=== PATIENT | female | born 1975 | race African-American/Black ===

== ENCOUNTER 2025-02-20 13:12 | Inpatient (IN) | payer BC, OTHER ==
[2025-02-20 14:30] LABS: ABSOLUTE IMMATURE GRANULOCYTES 0.01 x10^3/uL (0.0-0.031); BASOPHILS # 0.03 x10^3/uL (0.01-0.08); EOSINOPHIL % 1.7 % (0.7-5.8); EOSINOPHILS # 0.09 x10^3/uL (0.04-0.36); HEMATOCRIT 42.7 % (34.1-44.9); HEMOGLOBIN 13.7 g/dL (11.2-15.7); MCHC 32.1 g/dl (32.2-35.5); MEAN CELL VOLUME 90.1 fl (79.4-94.8); MEAN PLT VOLUME 11.3 fl (9.4-12.3); MONOCYTE # 0.44 x10^3/uL (0.24-0.86); MONOCYTE % 8.2 % (4.7-12.5); PLATELET COUNT 188 x10^3/uL (182-369); RDW 13.5 % (12.2-17.1)
[2025-02-20 14:38] LABS: INR 1.06 (0.83-1.09); PROTHROMBIN TIME (PATIENT) 11.6 SEC (9.7-13.0)
[2025-02-20 14:40] LABS: ACTIVATED PTT 28.2 SECONDS (25.2-36.5)
[2025-02-20 14:56] LABS: CHLORIDE 108 mmol/L (98-107); POTASSIUM 3.3 mmol/L (3.5-5.1); SODIUM 145 mmol/L (136-145)
[2025-02-20 14:58] LABS: CALCIUM 9.4 mg/dL (8.5-10.1)
[2025-02-20 14:59] LABS: ALBUMIN 3.5 g/dl (3.4-5.0); ANION GAP 7 mmol/L (4-13); BLOOD UREA NITROGEN 13.8 mg/dL (7-18); CO2 30 mmol/L (21-32); GLUCOSE,RANDOM 99 mg/dL (74-106)
[2025-02-20 15:02] LABS: SGOT/AST 13 U/L (15-37); SGPT/ALT 16 U/L (13-61)
[2025-02-20 15:03] LABS: BILIRUBIN,TOTAL 0.4 mg/dL (0.2-1); LDL CHOLESTEROL (ONLY SJRH) 89 mg/dL (5-100); TOT PROT 7.4 g/dl (6.4-8.2)
[2025-02-20 15:04] LABS: ALK PHOS 159 U/L (45-117); HDL CHOLESTEROL 63 mg/dL (40-60)
[2025-02-20 15:47] LABS: CHOLESTEROL 168 mg/dL (50-200)
[2025-02-20] MEDS ORDERED: LABETALOL HCL 20 MG/4 ML VIAL ONE ×2 (15:53→20:37)
[2025-02-20] MEDS: LABETALOL HCL 20 MG/4 ML VIAL IVPUSH ONE ×2 (15:58→20:46)
[2025-02-20] MEDS ORDERED: POTASSIUM CHLORIDE ORAL LIQUID 20 MEQ/15 ML ONE (20:37)
[2025-02-20] MEDS: POTASSIUM CHLORIDE ORAL LIQUID 20 MEQ/15 ML PO ONE (20:46)
[2025-02-20] MEDS: NICARDIPINE 25 MG in DEXTROSE 5%-WATER - 240 ML IVPB SCH (21:19)
[2025-02-21 00:48] LABS: EPI CELLS >36 /uL (0-25.1); HYALINE CASTS 0 /uL (0-3.1); PH,URINE 7.5 (5.0-8.0); URINE APPEARANCE CLEAR; URINE BACTERIA 1530 /uL (0-1359); URINE BILIRUBIN NEGATIVE (NEGATIVE); URINE COLOR YELLOW; URINE GLUCOSE (UA) NEGATIVE (NEGATIVE); URINE KETONE NEGATIVE (NEGATIVE); URINE LEUK ESTERASE TRACE (NEGATIVE); URINE NITRITE NEGATIVE (NEGATIVE); URINE PROTEIN 1+ (NEGATIVE); URINE RBC 10 /uL (0-23.9); URINE WBC 31 /uL (0-25.8)
[2025-02-21 06:30] LABS: POTASSIUM 3.3 mmol/L (3.5-5.1)
[2025-02-21 06:37] LABS: ALBUMIN 3.4 g/dl (3.4-5.0)
[2025-02-21 06:38] LABS: BLOOD UREA NITROGEN 12.3 mg/dL (7-18)
[2025-02-21 06:39] LABS: BILIRUBIN,TOTAL 0.5 mg/dL (0.2-1); CALCIUM 9.4 mg/dL (8.5-10.1)
[2025-02-21 06:40] LABS: MAGNESIUM 2.2 mg/dL (1.8-2.4)
[2025-02-21 06:41] LABS: CREATININE 0.9 mg/dL (0.55-1.3)
[2025-02-21 06:42] LABS: PHOSPHOROUS 3.5 mg/dL (2.5-4.9)
[2025-02-21 06:48] LABS: ABSOLUTE IMMATURE GRANULOCYTES 0.02 x10^3/uL (0.0-0.031); BASOPHILS # 0.02 x10^3/uL (0.01-0.08); EOSINOPHIL % 0.8 % (0.7-5.8); EOSINOPHILS # 0.05 x10^3/uL (0.04-0.36); HEMATOCRIT 41.2 % (34.1-44.9); HEMOGLOBIN 13.4 g/dL (11.2-15.7); MCHC 32.5 g/dl (32.2-35.5); MEAN CELL VOLUME 89.8 fl (79.4-94.8); MEAN PLT VOLUME 11.9 fl (9.4-12.3); MONOCYTE # 0.34 x10^3/uL (0.24-0.86); MONOCYTE % 5.5 % (4.7-12.5); PLATELET COUNT 194 x10^3/uL (182-369); RDW 13.6 % (12.2-17.1)
[2025-02-21] MEDS: NICARDIPINE 25 MG in DEXTROSE 5%-WATER - 240 ML IVPB SCH (07:15)
[2025-02-21 08:42] LABS: N-TERMINAL BNP 2503.3 pg/ml (5-125)
[2025-02-21] MEDS: ENOXAPARIN NA (PORCINE) 40 MG/0.4 ML DISP.SYRIN SQ SCH (09:18)
[2025-02-21] MEDS: POTASSIUM CHLORIDE TABS 20 MEQ TABLET.ER (FP) PO ONE (09:18)
[2025-02-21] MEDS: ASPIRIN 81 MG CHEWABLE TABLETS PO SCH (09:18)
[2025-02-21] MEDS: LOSARTAN POTASSIUM 50 MG TABLET PO SCH (11:14)
[2025-02-21] MEDS: NIFEdipine E.R. 30 MG TABLET PO SCH (11:14)
[2025-02-21] MEDS: NIFEdipine E.R. 30 MG TABLET PO ONE (15:05)
[2025-02-21] MEDS ORDERED: hydrALAZINE HCL 20 MG/ML VIAL IVPUSH PRN ×3 (15:12→15:39)
[2025-02-21] MEDS: LOSARTAN POTASSIUM 50 MG TABLET PO ONE (15:55)
[2025-02-21] MEDS: hydrALAZINE HCL 20 MG/ML VIAL IVPUSH ONE ×2 (15:56)
[2025-02-21] MEDS: DORZOLAMIDE 2% HCL OPHTHALMIC SOLUTION 10 ML BOTTLE OD SCH (21:58)
[2025-02-21] MEDS: ROSUVASTATIN CA 20 MG TABLET PO SCH (21:59)
[2025-02-21] MEDS: hydrALAZINE HCL 50 MG TABLET (FP) PO SCH (21:59)
[2025-02-21] MEDS ORDERED: hydrALAZINE HCL 25 MG TABLET (FP) PO SCH (22:00)
[2025-02-22 07:05] LABS: ABSOLUTE IMMATURE GRANULOCYTES 0.01 x10^3/uL (0.0-0.031); BASOPHILS # 0.02 x10^3/uL (0.01-0.08); EOSINOPHIL % 0.8 % (0.7-5.8); EOSINOPHILS # 0.06 x10^3/uL (0.04-0.36); HEMATOCRIT 41.9 % (34.1-44.9); HEMOGLOBIN 13.8 g/dL (11.2-15.7); MCHC 32.9 g/dl (32.2-35.5); MEAN CELL VOLUME 89.5 fl (79.4-94.8); MEAN PLT VOLUME 12.1 fl (9.4-12.3); MONOCYTE # 0.51 x10^3/uL (0.24-0.86); PLATELET COUNT 221 x10^3/uL (182-369); RDW 14.1 % (12.2-17.1)
[2025-02-22 07:22] LABS: POTASSIUM 3.5 mmol/L (3.5-5.1)
[2025-02-22 07:33] LABS: ALBUMIN 3.3 g/dl (3.4-5.0); CALCIUM 9.4 mg/dL (8.5-10.1); MAGNESIUM 2.5 mg/dL (1.8-2.4)
[2025-02-22 07:36] LABS: PHOSPHOROUS 4.1 mg/dL (2.5-4.9)
[2025-02-22 07:38] LABS: BILIRUBIN,TOTAL 0.7 mg/dL (0.2-1)
[2025-02-22] MEDS: LOSARTAN POTASSIUM 50 MG TABLET PO SCH (09:37)
[2025-02-22] MEDS: NIFEdipine E.R 60 MG TABLET PO SCH (09:37)
[2025-02-22] MEDS ORDERED: LOSARTAN POTASSIUM 50 MG TABLET PO SCH (10:00)
[2025-02-22] MEDS ORDERED: HYDROCHLOROTHIAZIDE 12.5 MG CAPSULE (FP) PO SCH (10:00)
[2025-02-22] MEDS: NIFEdipine E.R. 30 MG TABLET PO ONE ×2 (11:51→13:24)
[2025-02-22] MEDS: SPIRONOLACTONE 25 MG TABLET PO SCH (12:45)
[2025-02-22] MEDS: CARVEDILOL 12.5 MG TABLET (FP) PO SCH (17:14)
[2025-02-22] MEDS: ACETAMINOPHEN 1000 MG/100 ML BAG IVPB ONE (17:15)
[2025-02-22 18:31] LABS: ABSOLUTE IMMATURE GRANULOCYTES 0.02 x10^3/uL (0.0-0.031); BASOPHILS # 0.02 x10^3/uL (0.01-0.08); EOSINOPHIL % 0.7 % (0.7-5.8); EOSINOPHILS # 0.05 x10^3/uL (0.04-0.36); HEMATOCRIT 42.1 % (34.1-44.9); HEMOGLOBIN 13.6 g/dL (11.2-15.7); MCHC 32.3 g/dl (32.2-35.5); MEAN CELL VOLUME 90.1 fl (79.4-94.8); MEAN PLT VOLUME 11.6 fl (9.4-12.3); MONOCYTE % 6.9 % (4.7-12.5); PLATELET COUNT 234 x10^3/uL (182-369); RDW 14.5 % (12.2-17.1)
[2025-02-22] MEDS ORDERED: ACETAMINOPHEN 1000 MG/100 ML BAG IVPB PRN (22:20)
[2025-02-23 06:54] LABS: ABSOLUTE IMMATURE GRANULOCYTES 0.02 x10^3/uL (0.0-0.031); BASOPHILS # 0.02 x10^3/uL (0.01-0.08); EOSINOPHIL % 1.6 % (0.7-5.8); EOSINOPHILS # 0.12 x10^3/uL (0.04-0.36); HEMATOCRIT 41.6 % (34.1-44.9); HEMOGLOBIN 13.4 g/dL (11.2-15.7); MCHC 32.2 g/dl (32.2-35.5); MEAN CELL VOLUME 90.2 fl (79.4-94.8); MEAN PLT VOLUME 12.1 fl (9.4-12.3); MONOCYTE # 0.57 x10^3/uL (0.24-0.86); MONOCYTE % 7.4 % (4.7-12.5); PLATELET COUNT 245 x10^3/uL (182-369); RDW 14.3 % (12.2-17.1)
[2025-02-23 07:16] LABS: POTASSIUM 3.8 mmol/L (3.5-5.1)
[2025-02-23 07:30] LABS: CALCIUM 9.5 mg/dL (8.5-10.1)
[2025-02-23 07:31] LABS: ALBUMIN 3.1 g/dl (3.4-5.0); BLOOD UREA NITROGEN 27.1 mg/dL (7-18); MAGNESIUM 2.6 mg/dL (1.8-2.4)
[2025-02-23 07:34] LABS: CREATININE 1.3 mg/dL (0.55-1.3)
[2025-02-23 07:35] LABS: PHOSPHOROUS 5.2 mg/dL (2.5-4.9)
[2025-02-23 07:36] LABS: BILIRUBIN,TOTAL 0.5 mg/dL (0.2-1)
[2025-02-23 07:40] LABS: TOT PROT 6.8 g/dl (6.4-8.2)
[2025-02-23] MEDS: NIFEdipine E.R. 90 MG TABLET PO SCH (09:59)
[2025-02-23] MEDS ORDERED: CARVEDILOL 25 MG TABLET (FP) PO SCH (17:28)
[2025-02-23] MEDS: hydrALAZINE HCL 20 MG/ML VIAL IVPUSH PRN (18:06)
[2025-02-23] MEDS: CARVEDILOL 25 MG TABLET (FP) PO SCH (21:16)
[2025-02-24 06:56] LABS: ABSOLUTE IMMATURE GRANULOCYTES 0.03 x10^3/uL (0.0-0.031); BASOPHILS # 0.02 x10^3/uL (0.01-0.08); EOSINOPHIL % 0.7 % (0.7-5.8); EOSINOPHILS # 0.06 x10^3/uL (0.04-0.36); HEMATOCRIT 38.9 % (34.1-44.9); HEMOGLOBIN 12.6 g/dL (11.2-15.7); MCHC 32.4 g/dl (32.2-35.5); MEAN CELL VOLUME 90.7 fl (79.4-94.8); MONOCYTE # 0.93 x10^3/uL (0.24-0.86); MONOCYTE % 10.8 % (4.7-12.5); PLATELET COUNT 234 x10^3/uL (182-369); RDW 14.3 % (12.2-17.1)
[2025-02-24 07:11] LABS: POTASSIUM 3.9 mmol/L (3.5-5.1)
[2025-02-24 07:15] LABS: BLOOD UREA NITROGEN 28.6 mg/dL (7-18); MAGNESIUM 2.3 mg/dL (1.8-2.4)
[2025-02-24 07:18] LABS: CREATININE 1.4 mg/dL (0.55-1.3); PHOSPHOROUS 5.3 mg/dL (2.5-4.9)
[2025-02-24 07:20] LABS: BILIRUBIN,TOTAL 0.7 mg/dL (0.2-1); TOT PROT 6.5 g/dl (6.4-8.2)
[2025-02-24] MEDS ORDERED: METOPROLOL TARTRATE 5 MG/5 ML VIAL IVPUSH PRN (16:07)
[2025-02-25 06:41] LABS: ABSOLUTE IMMATURE GRANULOCYTES 0.03 x10^3/uL (0.0-0.031); BASOPHILS # 0.03 x10^3/uL (0.01-0.08); EOSINOPHIL % 0.6 % (0.7-5.8); EOSINOPHILS # 0.05 x10^3/uL (0.04-0.36); HEMOGLOBIN 12.8 g/dL (11.2-15.7); MEAN CELL VOLUME 90.7 fl (79.4-94.8); MEAN PLT VOLUME 11.8 fl (9.4-12.3); MONOCYTE # 0.81 x10^3/uL (0.24-0.86); PLATELET COUNT 259 x10^3/uL (182-369); RDW 14.1 % (12.2-17.1)
[2025-02-25 07:08] LABS: ALBUMIN 3.2 g/dl (3.4-5.0); CALCIUM 8.9 mg/dL (8.5-10.1)
[2025-02-25 07:09] LABS: BLOOD UREA NITROGEN 30.6 mg/dL (7-18); MAGNESIUM 2.6 mg/dL (1.8-2.4)
[2025-02-25 07:12] LABS: CREATININE 1.3 mg/dL (0.55-1.3); PHOSPHOROUS 4.2 mg/dL (2.5-4.9)
[2025-02-25 07:13] LABS: BILIRUBIN,TOTAL 0.7 mg/dL (0.2-1)
[2025-02-25 07:15] LABS: TOT PROT 6.6 g/dl (6.4-8.2)
[2025-02-25] MEDS ORDERED: hydrALAZINE HCL 50 MG TABLET (FP) PO SCH (12:28)
[2025-02-25] MEDS: hydrALAZINE HCL 25 MG TABLET (FP) PO ONE (14:20)
[2025-02-26 07:18] LABS: ABSOLUTE IMMATURE GRANULOCYTES 0.01 x10^3/uL (0.0-0.031); BASOPHILS # 0.04 x10^3/uL (0.01-0.08); EOSINOPHIL % 0.5 % (0.7-5.8); EOSINOPHILS # 0.03 x10^3/uL (0.04-0.36); HEMATOCRIT 38.3 % (34.1-44.9); HEMOGLOBIN 12.1 g/dL (11.2-15.7); MCHC 31.6 g/dl (32.2-35.5); MEAN CELL VOLUME 92.3 fl (79.4-94.8); MEAN PLT VOLUME 12.2 fl (9.4-12.3); MONOCYTE # 0.88 x10^3/uL (0.24-0.86); MONOCYTE % 13.4 % (4.7-12.5); PLATELET COUNT 236 x10^3/uL (182-369); RDW 13.9 % (12.2-17.1)
[2025-02-26 07:31] LABS: POTASSIUM 4.1 mmol/L (3.5-5.1)
[2025-02-26 07:34] LABS: ALBUMIN 2.9 g/dl (3.4-5.0); CALCIUM 8.8 mg/dL (8.5-10.1); MAGNESIUM 2.6 mg/dL (1.8-2.4)
[2025-02-26 07:38] LABS: CREATININE 1.3 mg/dL (0.55-1.3)
[2025-02-26 07:39] LABS: BILIRUBIN,TOTAL 0.5 mg/dL (0.2-1); TOT PROT 6.4 g/dl (6.4-8.2)
[2025-02-26 08:55] VITALS: RESP 18
[2025-02-26] MEDS ORDERED: REGADENOSON 0.4 MG/5 ML PRE-FILLED SYRINGE IVPUSH ONE (11:01)
[2025-02-26] MEDS: REGADENOSON 0.4 MG/5 ML PRE-FILLED SYRINGE IVPUSH ONE (11:35)
[2025-02-26 13:29] VITALS: BMI 41.4
[2025-02-26] MEDS: CARVEDILOL 25 MG TABLET (FP) PO ONE (13:54)
[2025-02-27 07:02] LABS: ABSOLUTE IMMATURE GRANULOCYTES 0.01 x10^3/uL (0.0-0.031); BASOPHILS # 0.05 x10^3/uL (0.01-0.08); EOSINOPHIL % 0.8 % (0.7-5.8); EOSINOPHILS # 0.04 x10^3/uL (0.04-0.36); HEMATOCRIT 37.7 % (34.1-44.9); HEMOGLOBIN 11.8 g/dL (11.2-15.7); MCHC 31.3 g/dl (32.2-35.5); MEAN CELL VOLUME 92.2 fl (79.4-94.8); MEAN PLT VOLUME 12.2 fl (9.4-12.3); MONOCYTE # 0.81 x10^3/uL (0.24-0.86); MONOCYTE % 16.3 % (4.7-12.5); PLATELET COUNT 270 x10^3/uL (182-369); RDW 13.8 % (12.2-17.1)
[2025-02-27 07:26] LABS: POTASSIUM 4.3 mmol/L (3.5-5.1)
[2025-02-27 07:34] LABS: CALCIUM 9.1 mg/dL (8.5-10.1)
[2025-02-27 07:35] LABS: ALBUMIN 2.9 g/dl (3.4-5.0); BLOOD UREA NITROGEN 30.2 mg/dL (7-18); MAGNESIUM 2.6 mg/dL (1.8-2.4)
[2025-02-27 07:38] LABS: CREATININE 1.3 mg/dL (0.55-1.3)
[2025-02-27 07:40] LABS: BILIRUBIN,TOTAL 0.4 mg/dL (0.2-1); TOT PROT 6.4 g/dl (6.4-8.2)
[2025-02-27 13:52] VITALS: BP 137/70; PULSE 78; TEMP 98.4
== END 2025-02-27 14:09 | disposition home or self-care (01) | DRG 281 ==
LOC: JER 13:12 → JERBED 16:16 → OBSVTOIN 18:49 → JICU 21:31 → J4W 02-26 17:41
PROVIDERS: ADMIT Internal Medicine; ATTEND Internal Medicine
DX: I16.1 Hypertensive emergency (principal); Z68.41 Body mass index [BMI] 40.0-44.9, adult; I21.A1 Myocardial infarction type 2; E66.01 Morbid (severe) obesity due to excess calories; I10 Essential (primary) hypertension; E66.09 Other obesity due to excess calories; H53.8 Other visual disturbances; H40.9 Unspecified glaucoma
CPT/HCPCS: 0241U-QW; 36415; 70450-TC; 71045-TC-FY; 76775-TC; 78452-TC; 80053; 80061; 81003; 82088; 82550; 82962; 83036; 83735; 83880; 84100; 84244; 84443; 84484; 84703; 85025; 85610; 85730; 86850; 86900; 86901; 87633; 93005; 93010; 93017; 93306-TC; 93975; 99285-25; A9502; G0378; J2785